=== PATIENT | male | born 1955 | race Caucasian/White ===

== ENCOUNTER → 2018-08-24 | Outpatient (RCR) | payer OTHER | LOC: PT 08-13 13:58 | PROVIDERS: ATTEND Orthopaedic Surgery | DX: M17.11 Unilateral primary osteoarthritis, right knee (principal); M62.81 Muscle weakness (generalized); M25.561 Pain in right knee; R26.9 Unspecified abnormalities of gait and mobility ==

== ENCOUNTER 2018-09-19 12:54 | Outpatient (RCR) | payer OTHER | END 2018-09-23 | LOC: PT 12:54 | PROVIDERS: ATTEND Orthopaedic Surgery | DX: M17.11 Unilateral primary osteoarthritis, right knee (principal); M25.561 Pain in right knee; M62.81 Muscle weakness (generalized); R26.9 Unspecified abnormalities of gait and mobility | CPT/HCPCS: 97139 ==

== ENCOUNTER 2018-09-26 12:57 | Outpatient (RCR) | payer OTHER | END 2018-10-24 | LOC: PT 12:57 | PROVIDERS: ATTEND Orthopaedic Surgery | DX: M17.11 Unilateral primary osteoarthritis, right knee (principal); M25.561 Pain in right knee; M62.81 Muscle weakness (generalized); R26.9 Unspecified abnormalities of gait and mobility ==